=== PATIENT | female | born 1980 | race American Indian/Alaskan Native ===

== ENCOUNTER 2017-10-17 19:22 | Emergency (ER) | payer MEDICAID ==
[2017-10-17 20:32] VITALS: BP 150/94
[2017-10-18] MEDS ORDERED: BACTRIM DS PO ONE (01:42)
[2017-10-18] MEDS ORDERED: MOTRIN PO ONE (01:42)
[2017-10-18] MEDS ORDERED: XYLOCAINE 1% MPF 5 mL INFILTRATI ONE (01:42)
--- NOTE | 2017-10-18 01:42 | Emergency Department Report ---
- General Chief complaint: Skin/Abscess/Foreign Body Stated complaint: ARM PAIN Time Seen by Provider: 10/18/17 01:06 Source: patient Mode of arrival: Ambulatory Limitations: No Limitations - History of Present Illness Initial comments: Patient reports that she has an abscess under right arm. That's been there for a week she says she has been applying warm compresses and soaking in Epsom salt. She said pain is increasing. She says she has been taking Tylenol and Motrin with some relief but pain returned and worse with movement and with touch. She took medication at 1800. Patient says she's had similar incident in the past. Denies any fever or chills. Denies any nausea or vomiting. Denies any restriction of movement to extremities. complaint: abscess/boil Onset/Timin -: week(s) Tetanus Up to Date: yes Location: RUE (right axilla) Severity: mild Severity scale (0 -10): 4 Quality: dull Consistency: intermittent Improves with: medication, rest Worsens with: palpation, movement Context: other (patient poor recurrent abscess) Associated symptoms: denies other symptoms Treatments Prior to Arrival: attempted to drain pus at, NSAID, other (warm compresses with Epsom salt) - Related Data Previous Rx's Medication Instructions Recorded Last Taken Type Acetaminophen/Codeine [Tylenol 1 tab PO Q6H PRN #12 tab 10/18/17 Unknown Rx /Codeine # 3 tab] Ibuprofen [Motrin] 600 mg PO Q8H PRN #15 tablet 10/18/17 Unknown Rx Sulfamethoxazole/Trimethoprim 1 each PO BID #20 tablet 10/18/17 Unknown Rx [Bactrim DS TAB] Allergies Allergy/AdvReac Type Severity Reaction Status Date / Time No Known Allergies Allergy Unverified 10/17/17 20:32 Abscess Boil HPI - HPI Chief Complaint: Skin/Abscess/Foreign Body Stated Complaint: ARM PAIN Time Seen by Provider: 10/18/17 01:06 Home Medications: Previous Rx's Medication Instructions Recorded Last Taken Type Acetaminophen/Codeine [Tylenol 1 tab PO Q6H PRN #12 tab 10/18/17 Unknown Rx /Codeine # 3 tab] Ibuprofen [Motrin] 600 mg PO Q8H PRN #15 tablet 10/18/17 Unknown Rx Sulfamethoxazole/Trimethoprim 1 each PO BID #20 tablet 10/18/17 Unknown Rx [Bactrim DS TAB] Allergies/Adverse Reactions: Allergies Allergy/AdvReac Type Severity Reaction Status Date / Time No Known Allergies Allergy Unverified 10/17/17 20:32 ED Review of Systems ROS: Stated complaint: ARM PAIN Other details as noted in HPI Constitutional: denies: chills, fever Eyes: denies: vision change ENT: denies: throat pain, congestion Respiratory: denies: cough, orthopnea, shortness of breath, SOB with exertion, SOB at rest, stridor, wheezing Cardiovascular: denies: chest pain, palpitations, dyspnea on exertion, edema, syncope Gastrointestinal: denies: nausea, vomiting, diarrhea Musculoskeletal: denies: back pain, joint swelling, arthralgia, myalgia Skin: other (abscess right armpit). denies: rash, lesions Neurological: denies: headache, weakness, numbness, paresthesias ED Past Medical Hx - Past Medical History Previous Medical History?: Yes Additional medical history: Abscess - Surgical History Past Surgical History?: Yes Additional Surgical History: c-sections - Family History Family history: hypertension - Social History Smoking Status: Never Smoker Substance Use Type: Alcohol - Medications Home Medications: Home Medications Medication Instructions Recorded Confirmed Last Taken Type Acetaminophen/Codeine [Tylenol 1 tab PO Q6H PRN #12 tab 10/18/17 Unknown Rx /Codeine # 3 tab] Ibuprofen [Motrin] 600 mg PO Q8H PRN #15 tablet 10/18/17 Unknown Rx Sulfamethoxazole/Trimethoprim 1 each PO BID #20 tablet 10/18/17 Unknown Rx [Bactrim DS TAB] ED Physical Exam - General Limitations: No Limitations General appearance: alert, in no apparent distress - Head Head exam: Present: atraumatic, normocephalic, normal inspection - Eye Eye exam: Present: normal appearance, PERRL, EOMI Pupils: Present: normal accommodation - ENT ENT exam: Present: normal exam, normal orophraynx, mucous membranes moist, TM's normal bilaterally, normal external ear exam - Neck Neck exam: Present: normal inspection, full ROM, other (no C-spine tenderness). Absent: tenderness, lymphadenopathy - Respiratory Respiratory exam: Present: normal lung sounds bilaterally. Absent: respiratory distress, chest wall tenderness - Cardiovascular Cardiovascular Exam: Present: regular rate, normal rhythm. Absent: systolic murmur, diastolic murmur - GI/Abdominal GI/Abdominal exam: Present: soft, normal bowel sounds. Absent: distended, tenderness - Extremities Exam Extremities exam: Present: normal inspection, full ROM, normal capillary refill , other (no clubbing, cyanosis or edema. +2 pulses to all extremities and no neurovascular compromise.). Absent: tenderness, pedal edema, joint swelling, calf tenderness - Back Exam Back exam: Present: normal inspection, full ROM, other (ambulates without any difficulties). Absent: tenderness, CVA tenderness (R), CVA tenderness (L), muscle spasm, paraspinal tenderness, vertebral tenderness, rash noted - Neurological Exam Neurological exam: Present: alert, oriented X3, normal gait, reflexes normal - Psychiatric Psychiatric exam: Present: normal affect, normal mood - Skin Skin exam: Present: warm, dry, erythema, other (abscess) - Expanded Skin Exam Expanded Type of lesion: Present: abscess (right axilla) Distribution of rash: RUE (right axilla) Description of rash: Present: size (2 cm), tenderness, erythematous, swelling, discharge, fluctuant, indurated. Absent: petechial, purpuic ED Course Vital Signs 10/17/17 20:23 Temperature 98 F Pulse Rate 78 Respiratory 18 Rate Blood Pressure 150/94 O2 Sat by Pulse 100 Oximetry - Reevaluation(s) Reevaluation #1: 10/18/17 04:33 Patient given ibuprofen 800 mg by mouth for pain to abscess at the right axilla. She was started on Bactrim DS. While waiting in the emergency room for evaluation and treatment of abscess patient reports that it does not drain so there is no need for me to do an incision to her abscess. I was able to express a large amount of pus from site. She said it feels better. Area cleansed with iodine and normal saline and nonadhesive gauze dressing followed by tape. Patient tolerated procedure well - I & D Left Type of Procedure: Simple (axilla) Site: right axilla Blade Size: manual expression I & D Procedure: betadine prep, sterile drapes applied, sterile dressing applied , no gauze wick placed Progress: Abscess to right axilla had already came to ahead and started drainage therefore I was able to express a large amount of pus from site. There were no need for me to make an incision or for any pack and because it was very fluctuant and pus expressed from site. No further induration after pus expressed some site. Patient tolerated procedure well and her tetanus vaccines up-to-date ED Medical Decision Making - Medical Decision Making ED course This is a 37-year-old female here for incontinent for incision and drainage of abscess to right axilla. She reports that abscess recurred and has been there for one week and she's been tried several things to include Epsom salts and warm soaks. She says she has been trying Tylenol and Motrin. Patient without any fever. She is having pain with movement. While patient was waiting in for abscess to be incision and drain it came to ahead and started draining normally. Patient was seen and examined by myself and found to have abscess and cellulitis 2 cm x 2 cm indurated and fluctuant area with some drainage. See procedure note for detailed but additional pus expressed manually without any need for incision and drainage because there was already opening in the center. I expressed large amount of pus and patient did not want any injection for pain at site. Her tetanus vaccine is up to date. Area cleansed and sterile dry dressing placed the site. A/P 1: Abscess and cellulitis right axilla-abscess started to drain therefore there was no need for incision and drainage but I was able to express a large amount of pus from site. There is no induration after drainage. Patient was given Motrin 800 mg which helped her pain. She was also started on Bactrim DS in the emergency room. I discussed the patient that she needs to follow-up with her primary care physician in 2 days and if she doesn't have one she can follow-up at [facility]. Patient will be placed on Bactrim DS for cellulitis and also Motrin and Tylenol 3 to manage pain. Educated on medication, applying warm compresses, good hand hygiene and diagnosis. Follow-up with primary care physician in 2 days, vital signs are stable and she is afebrile and she is nontoxic in appearance. Patient says she felt better and she just discharged home from ED in stable condition in no acute distress. Critical care attestation.: If time is entered above; I have spent that time in minutes in the direct care of this critically ill patient, excluding procedure time. ED Disposition Clinical Impression: Abscess of axilla, right, Cellulitis of right axilla Disposition: DC-01 TO HOME OR SELFCARE Is pt being admited?: No Does the pt Need Aspirin: No Condition: Stable Instructions: Cellulitis (ED), Acute Wound Care (ED), Abscess (ED) Additional Instructions: Take antibiotic as prescribed Follow-up with primary care physician in 2 days for recheck. If you noticed that area it is increasing in size, redness, develop fever, nausea and there vomited , palpitation and feeling weak. Return to the emergency room [id number] Apply warm compresses to affected area 3 times a day Keep affected area clean and dry. Followed discharge instruction on acute wound care . Please do not drive or operate heavy machinery while taking in Tylenol 3 at this medication causes drowsiness. Take Motrin for mild pain. Prescriptions: Acetaminophen/Codeine [Tylenol /Codeine # 3 tab] 1 tab PO Q6H PRN #12 tab PRN Reason: Pain Ibuprofen [Motrin] 600 mg PO Q8H PRN #15 tablet PRN Reason: Pain Sulfamethoxazole/Trimethoprim [Bactrim DS TAB] 1 each PO BID #20 tablet Referrals: [facility] [Outside] - 10/20/17 follow-up with your, primary care physician [Other] - 10/20/17 Forms: Work/School Release Form(ED) Medications - Medications Medications: Home Medications Medication Instructions Recorded Confirmed Last Taken Type Acetaminophen/Codeine [Tylenol 1 tab PO Q6H PRN #12 tab 10/18/17 Unknown Rx /Codeine # 3 tab] Ibuprofen [Motrin] 600 mg PO Q8H PRN #15 tablet 10/18/17 Unknown Rx Sulfamethoxazole/Trimethoprim 1 each PO BID #20 tablet 10/18/17 Unknown Rx [Bactrim DS TAB]
== END 2017-10-18 04:55 | disposition home or self-care (01) ==
LOC: ED 19:22
DX: L02.411 Cutaneous abscess of right axilla (principal)